=== PATIENT | male | born 1995 | race Caucasian/White ===

== ENCOUNTER 2024-05-07 19:48 | Emergency (ER) | payer OTHER, SELFPAY ==
[2024-05-07 19:55] VITALS: BP 148/91
[2024-05-07 22:20] LABS: % Eosinophils 1.9 % (0-6); % Immature Granulocytes 0.2 % (0-0.5); % Lymphocytes 51.7 % (20.5-51.1); % Neutrophils 34.2 % (42.2-75.2); Absolute Basophils 0.1 10^3/uL (0-0.2); Absolute Eosinophils 0.1 10^3/uL (0-0.7); Absolute Lymphocytes 2.5 10^3/uL (1.2-3.4); Absolute Monocytes 0.5 10^3/uL (0.1-0.6); Absolute Neutrophils 1.7 10^3/uL (1.4-6.5); Hematocrit 43.5 % (39.0-52.0); Hemoglobin 16.3 g/dL (13.0-18.0); Mean Corp Hgb Conc. 37.5 g/dL (33.0-37.0); Mean Corpuscular Hgb 29.6 pg (27.0-31.0); Mean Corpuscular Volume 78.9 fL (80.0-94.0); Mean Platelet Volume 10.5 fL (7.4-10.4); Nucleated Red Blood Cells % 0 % (-); Platelet Count 208 10^3/uL (130-400); Red Blood Cell Count 5.51 10^6/uL (4.70-6.10); Red Cell Dist. Width 11.9 % (11.5-14.5); White Blood Cell Count 4.8 10^3/uL (4.8-10.8)
[2024-05-07 22:32] LABS: ALT (SGPT) 31 U/L (0-50); AST (SGOT) 28 U/L (17-59); Albumin 5.1 g/dl (3.5-5.0); Alkaline Phosphatase 88 U/L (38-126); Blood Urea Nitrogen 15 mg/dl (9-20); Carbon Dioxide 26 mmol/L (22-30); Chloride 102 mmol/L (98-107); Glucose 97 mg/dl (70-99); Sodium 140 mmol/L (135-145); Total Bilirubin 1.4 mg/dl (0.2-1.3); eGFR > 60.00
--- NOTE | 2024-05-07 22:41 | ED.SKININJ ---
HPI-Injury
General
Chief Complaint: Blood and Body Fluid Exposure
Source: patient
Exam Limitations: none
Time Seen by Provider: 05/07/24 21:42
Nursing documentation reviewed up to this point in time: agreed with
History of Present Illness-Injury
Is this injury a work related problem?: No
Is pt an associate of [facility]/[place]?: No
Initial Injury comments:
Patient to ED for eval after needle stick at work. 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 Brought self to ED for eval. DOes not have any medical history on source patiient.
Past History
Past History
ED Past Medical History: None
ED Past Surgical History: None
Review of Systems
Review of Systems
Allergies reviewed?: Yes
All Other Systems: ROS reviewed and negative except as documented in HPI and ROS
Constitutional: Reports no symptoms
Musculoskeletal: Reports no symptoms
Skin: Reports other (needle stick to left thumb)
Neurological: Reports no symptoms
Psychiatric: Reports no symptoms
Skin Exam
Puncture Wound
Thumb:
Type of puncture wound: exposed to a needle
Age of puncture wound: within last several hours
Any active bleeding?: no active bleeding
Distal skin color and temperature: normal-warm & good color
Normal distal neurovascular exam: Yes
Phy Exam
General Physical Exam
General Presentation: well appearing and no apparent distress
General age: appears stated age
General Skin: warm and dry
General Habitus: normal
General Mental: alert
Musculoskeletal Exam
Musculoskeletal Exam: full ROM and neuro vasc intact
Skin Exam
Skin Exam: normal color, warm/dry and no rash
Psychiatric Exam
Psychiatric Exam: normal mood/affect
Course
Orders/Labs/Results
Orders:
Orders
05/07/24 21:48
Pt has had a significant HIV exposure? Routine
HIV Exposure is significant?: Yes
05/07/24 22:08
Complete Blood Count/With Diff Urgent
Comprehensive Metabolic Panel Urgent
SEP, Non Associate [Non Associate SEP Profile] Urgent
05/07/24 22:34
Emtricitabine/Tenofovir [Truvada Tablet] 1 tablet PO NOW STA
Raltegravir Potassium [Isentress] 400 mg PO NOW STA
Abnormal Lab Results
05/07/24
22:08
MCV 78.9 L fL
(80.0-94.0)
MCHC 37.5 H g/dL
(33.0-37.0)
MPV 10.5 H fL
(7.4-10.4)
Neutrophils % 34.2 L %
(42.2-75.2)
Lymphocytes % 51.7 H %
(20.5-51.1)
Monocytes % 11.0 H %
(1.7-9.3)
Total Bilirubin 1.4 H mg/dl
(0.2-1.3)
Albumin 5.1 H g/dl
(3.5-5.0)
05/07/24 22:08
05/07/24 22:08
Vital Signs
Initial and Last Documented VS:
Initial Vital Signs
Temp Pulse Resp BP Pulse Ox
98.2 F 93 16 148/91 98
05/07/24 19:55 05/07/24 19:55 05/07/24 19:55 05/07/24 19:55 05/07/24 19:55
Last Documented Vital Signs
Temp Pulse Resp BP Pulse Ox
98.2 F 93 16 148/91 98
05/07/24 19:55 05/07/24 19:55 05/07/24 19:55 05/07/24 19:55 05/07/24 19:55
*Critical Care Note
Total Time (30-74mins, 75-104mins- exclusive of procedures): Not Applicable
Update Note
Update Note:
Patient stuck self with a needle after perfoming dental block. Requesting HIV prophylaxis treatment. Initial doses given in dept. He is instructed to followup with his workman's comp provider in the AM
ED Attending Note
-
Portions of this chart may have been created with voice recognition software.� Occasional wrong word or��sound alike� substitutions may have occurred due to the inherent limitations of voice recognition software.
Discharge Plan
Departure
Patient Disposition: Home (Routine Discharge)
Date of Disposition: 05/07/24
Time of Disposition: 22:35
Patient with high blood pressure during this ER visit?: No
Condition: Good
Covid-19: Not Applicable
Discharge Problem:
Needle stick injury, Exposure to body fluid
Instructions: Blood or body fluid exposure, Wound Care ED
Prescriptions:
New
emtricitabine-tenofovir (TDF) [Truvada] 200-300 mg tablet
1 tab PO DAILY Qty: 14 0RF
Isentress 400 mg tablet
400 mg PO BID Qty: 28 0RF
Referrals:
NONE,* [Family Provider] -
Stand Alone Forms: Bl/Fluid Consent/Declination, Return to Work
Activity Restrictions/Additional Instructions:
Follow up with your workmans comp provider in the AM
Interventions
Interventions:
*Risk Screen - Suicide Last Done: 05/07/24 19:53
*General Assessment Last Done: 05/07/24 19:53
*Neglect/Abuse Screening Last Done: 05/07/24 19:53
*ED COVID-19 Vaccine History Last Done: 05/07/24 19:53
*Nursing Disposition Last Done: 05/07/24 23:23
ED-Skin Assessment Last Done: 05/07/24 20:40
Discharge Date and Time
Discharge Date/Time: 05/07/24 23:24
Print Language: LATVIAN
[2024-05-07] MEDS: ISENTRESS 400 MG PO (23:04)
[2024-05-07] MEDS: TRUVADA TABLET 1 TABLET PO (23:04)
[2024-05-08 03:21] LABS: Hepatitis B Surface Antigen Negative (Negative)
[2024-05-08 03:39] LABS: Hepatitis B Surface Antibody Positive; Hepatitis C Antibody Negative (Negative)
[2024-05-08 13:43] LABS: HIV Combo Negative (Negative)
== END 2024-05-07 23:24 | disposition home or self-care (01) ==
LOC: EMR 19:48
PROVIDERS: Nurse Practitioner; EMERGENCY PHYSICIAN Emergency Medicine
DX: Z77.21 Contact with and (suspected) exposure to potentially hazardous body fluids (principal); W46.0XXA Contact with hypodermic needle, initial encounter; Y99.0 Civilian activity done for income or pay
CPT/HCPCS: 99283; 80053; 85025; 86706; 86803; 87340; 87389